=== PATIENT | male | born 1955 | race Caucasian/White ===

== ENCOUNTER 2024-06-05 11:28 | Outpatient (CLI) | payer MEDICARE, OTHER, SELFPAY ==
--- NOTE | ~2024-06-05 | PE_ITS ---
EXAMINATION: PET_PETPSMAST_PT DATE: 06/05/2024 14:07 INDICATION: Prostate cancer TECHNIQUE: 5.022 mCi of Illucix [id number]) was administered i.v. Low dose computed tank graphy (CT) images were acquired from the base of the brain to the base of the brain to the proximal thighs for attenuation correction and anatomic localization. Positron emission tomography (PET) image s were acquired in the same distribution beginning 90 minutes after injection. Images including fused PET/CT images were reconstructed in axial, coronal, and sagittal planes. Automated exposure control technique was employed. The dose-length product was 1260.58mGy-cm. COMPARISON: None FINDINGS: Head/neck: Typical pattern of symmetric physiologic increased activity in the lacrimal, parotid and submandibula r glands as well as along the mucosa of the nasal and oral cavities, pharynx and hypopharynx. No path ologically enlarged cervical lymphadenopathy or suspicious foci of increased uptake in the visualized head or neck. Chest: Lungs are clear with no suspicious pulmonary nodule, pneumonia, pulmonary edema or pleural effusion. Heart size is normal. Atherosclerotic coronary artery calcification. No pericardial effusion. Thoraci c aorta is normal in caliber. No pathologically enlarged or PSMA avid thoracic lymphadenopathy. Abdomen/pelvis/proximal thighs: Physiologic renal accumulation and excretion of activity in the kidneys, bladder and along portions o f ureters. There a couple small foci of mild increased uptake at the posterior inferior prostate is m ore prominent along the midline with maximal velocity of 5.1 and the second on the left with maximal SUV of 4.7. Normal degree and slightly heterogenous pattern of increased uptake throughout the liver and spleen without radiologic correlate or dominant PSMA avid lesion. A couple calcified gallstones a t the neck of the otherwise normal-appearing gallbladder. Pancreas and bilateral adrenal glands are n ormal. Moderate uptake scattered throughout the bowels with typical duodenal and proximal jejunal pre dominance and without radiologic correlate, also likely physiologic. No other abnormal foci of increa sed uptake or pathologically enlarged lymphadenopathy in the abdomen, pelvis or proximal thighs. Musculoskeletal: Moderate cervical and lumbar and mild thoracic spondylosis with bridging osteophytes at multiple leve ls consistent with diffuse idiopathic skeletal hyperostosis (DISH). 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 No suspicious lytic, blasti c or abnormally PSA may avid bone lesions. IMPRESSION: 1. Couple small foci of mild uptake at the posterior inferior prostate consistent with provided histo ry of primary prostate cancer. No evident metastatic disease. 2. Cholelithiasis. Reviewed, dictated and finalized at location B. IMPRESSION: 1. Couple small foci of mild uptake at the posterior inferior prostate consiste nt with provided history of primary prostate cancer. No evident metastatic dise ase. 2. Cholelithiasis.
== END 2024-06-05 11:29 | disposition home or self-care (01) ==
PROVIDERS: Visit Provider Urology
DX: C61 Malignant neoplasm of prostate (principal); K80.20 Calculus of gallbladder without cholecystitis without obstruction
CPT/HCPCS: 78815; A9596